=== PATIENT | female | born 1980 | race Caucasian/White ===

== ENCOUNTER 2022-01-12 05:39 | Emergency (ER) | payer MEDICAID ==
[~2022-01-12] VITALS: Ht 157.5 cm; Wt 117.9 kg
[2022-01-12] MEDS ORDERED: MOBIC15 MG PO (06:13)
[2022-01-12] MEDS ORDERED: CYCLOBENZAPRINE10 MG PO (06:13)
== END 2022-01-12 06:35 | disposition home or self-care (01) ==
LOC: ED 05:39
DX: S93.401A Sprain of unspecified ligament of right ankle, initial encounter (principal); S93.402A Sprain of unspecified ligament of left ankle, initial encounter; X50.1XXA Overexertion from prolonged static or awkward postures, initial encounter; Z88.0 Allergy status to penicillin
CPT/HCPCS: 73610; 96372; 99283-25; J1885